=== PATIENT | male | born 1940 | race Caucasian/White ===

== ENCOUNTER 2016-07-16 17:47 | Emergency (ER) | payer OTHER, MEDICAID ==
[~2016-07-16] VITALS: Ht 167.6 cm; Wt 68.0 kg
[2016-07-16 17:50] VITALS: BP 118/56; PULSE 55; RESP 16; TEMP 97.7; O2SAT 97
--- NOTE | 2016-07-16 17:50 | NUR ---
Patient triaged and placed in waiting room. VSS and patient appears in no acute distress at this time. Accompanied by family, awaiting available bed, and MD notified of need for MSE.
[2016-07-16 19:14] LABS: BASOPHILS # (AUTO) 0.1 K/uL (0.0-0.2); BASOPHILS % (AUTO) 0.9 % (0.0-2.0); EOSINOPHILS # (AUTO) 0.2 K/uL (0.0-0.4); EOSINOPHILS % (AUTO) 1.7 % (0.0-4.0); HEMATOCRIT 46.8 % (36-54); HEMOGLOBIN 14.7 g/dL (14.0-18.0); LYMPHOCYTES # (AUTO) 0.9 K/uL (1.0-5.5); LYMPHOCYTES % (AUTO) 8.9 % (20.5-51.5); MEAN CORPUSCULAR HEMOGLOBIN 26 pg (27-31); MEAN CORPUSCULAR HGB CONC 31 % (32-36); MEAN CORPUSCULAR VOLUME 82 fL (79.0-98.0); MONOCYTES # (AUTO) 0.3 K/uL (0.0-1.0); MONOCYTES % (AUTO) 3.4 % (1.7-9.3); NEUTROPHILS # (AUTO) 8.3 K/uL (1.8-7.7); NEUTROPHILS % (AUTO) 85.1 % (40.0-70.0); PLATELET COUNT (AUTO) 656 K/uL (130-430); RED BLOOD CELL COUNT(AUTO) 5.74 MIL/uL (4.2-6.2); RED CELL DISTRIBUTION WIDTH 18.8 % (9.0-15.0); WHITE BLOOD COUNT (AUTO) 9.8 K/uL (4.8-10.8)
[2016-07-16 19:23] LABS: ANION GAP 6 (5-15); CALCIUM 9.6 mg/dL (8.4-11.0); CHLORIDE 98 mmol/L (98-107); CREATININE 1.73 mg/dL (0.55-1.30); GLUCOSE 184 mg/dL (70-99); POTASSIUM 4.9 mmol/L (3.5-5.1); SODIUM SERUM 134 mmol/L (136-145); UREA NITROGEN, BLOOD 47 mg/dL (8-21)
[2016-07-16 19:27] LABS: ALANINE AMINOTRANSFERASE 34 U/L (12-78); ALBUMIN 3.8 g/dL (3.4-4.8); ASPARTATE AMINOTRANSFERASE 19 U/L (10-37); LIPASE 152 U/L (73-393); TOTAL BILIRUBIN 0.7 mg/dL (0.0-1.0); TOTAL PROTEIN, SERUM 7.6 g/dL (6.4-8.3)
--- NOTE | 2016-07-16 20:24 | NUR ---
Care endorsed to me. Patient on gurney, calm, C/O mild nausea, no signs of acute distress. Family at bedside
--- NOTE | 2016-07-16 20:26 | NUR ---
ER MD Morley at bedside evaluating the patient
--- NOTE | 2016-07-16 20:32 | NUR ---
# 20 gauge angiocath placed to left hand. Use of asceptic technique. Opsite placed over site. Blood return noted. Blood for lab drawn from site. Flushed with 10 cc of normal saline. No evidence of infiltration noted. Patient tolerated well.
[2016-07-16] MEDS ORDERED: NACL 0.9% 1,000 ML IV ONE (20:34)
--- NOTE | 2016-07-16 20:35 | NUR ---
Patient brought to ER by family C/O 3 days of nausea and vomiting, unable to hold anything down. Patient has dementia, DM, thyroid and cardiac problems. AAOx4, unlabored breathing, mild abdominal pain 5/10, no signs of acute distress.
[2016-07-16] MEDS ORDERED: ONDANSETRON HCL 4 MG/2 ML VIAL IVP ONE (20:45)
--- NOTE | 2016-07-16 21:13 | NUR ---
Patient off the unit via gurney for CT scan
[2016-07-16 21:33] LABS: BILIRUBIN,URINE NEGATIVE (NEGATIVE); BLOOD, URINE NEGATIVE (NEGATIVE); CLARITY/URINE CLEAR (CLEAR); COLOR,URINE YELLOW (YELLOW); GLUCOSE,URINE NEGATIVE (NEGATIVE); KETONES,URINE NEGATIVE (NEGATIVE); LEUKOCYTE ESTERASE ,URINE NEGATIVE (NEGATIVE); NITRITE, URINE NEGATIVE (NEGATIVE); PROTEIN URINE NEGATIVE (NEGATIVE); UROBILINOGEN,URINE 0.2 (0.2-1.0)
--- NOTE | 2016-07-16 22:37 | NUR ---
Patient attempted urination using urinal. 300 ml clear yellow urine. ER MD Morley aware
--- NOTE | 2016-07-16 22:57 | NUR ---
# 16 FR Grimaldo catheter with use of sterile technique. Immediate return of 700 cc yellow urine noted. Bedside drainage bag placed below level of bladder. Urine sample collected and sent to lab. Pt tolerated procedure well.
--- NOTE | 2016-07-16 23:42 | NUR ---
Grimaldo Cath changed to leg bag. Patient and family educated on home care.
[2016-07-17 00:16] VITALS: BP 128/42; PULSE 56; RESP 16; TEMP 98; O2SAT 56
--- NOTE | 2016-07-17 00:16 | NUR ---
Patient and family given written and verbal discharge instructions and verbalizes understanding. ER MD Morley discussed with patient the results and treatment provided. Patient in stable condition. ID arm band removed. IV catheter removed intact and dressing applied, no active bleeding. Patient educated on pain management and to follow up with PMD. Pain Scale 0/10. Opportunity for questions provided and answered.
== END 2016-07-17 00:16 | disposition home or self-care (01) ==
LOC: SED 17:47
DX: K59.00 Constipation, unspecified (principal); R33.9 Retention of urine, unspecified; I10 Essential (primary) hypertension; E11.9 Type 2 diabetes mellitus without complications; Z86.59 Personal history of other mental and behavioral disorders
CPT/HCPCS: 36415; 51702; 71010; 74176; 80053; 81003; 83605; 83690; 85025; 87040; 93005; 96361; 96374; 99285; J2405; J7030